=== PATIENT | male | born 1945 | race Caucasian/White ===

== ENCOUNTER → 2024-10-28 10:15 | Outpatient (REF) | payer MEDICARE, BC, SELFPAY | LOC: RAD 10:15 | PROVIDERS: ATTENDING PHYSICIAN Nurse Practitioner Family; FAMILY PHYSICIAN Family Medicine | DX: M79.661 Pain in right lower leg (principal); M79.671 Pain in right foot | CPT/HCPCS: 73630; 93971 ==

== ENCOUNTER → 2024-10-29 07:17 | Outpatient (REF) | payer MEDICARE, BC, SELFPAY ==
[2024-10-29 08:15] LABS: ALT (SGPT) 19 U/L (0-50); AST (SGOT) 20 U/L (17-59); Albumin 4.4 g/dl (3.5-5.0); Alkaline Phosphatase 81 U/L (38-126); Blood Urea Nitrogen 22 mg/dl (9-20); Calcium 9.6 mg/dl (8.4-10.2); Carbon Dioxide 27 mmol/L (22-30); Chloride 107 mmol/L (98-107); Glucose 141 mg/dl (70-99); Magnesium 1.8 mg/dl (1.6-2.3); Potassium 4.3 mmol/L (3.5-5.1); Sodium 141 mmol/L (135-145); Total Protein 7.2 g/dl (6.3-8.2); eGFR > 60.00
[2024-10-29 09:06] LABS: Vitamin B12 578 pg/ml (239-931)
[2024-10-31 12:57] LABS: Lyme Antibody Screen, EIA Negative (Negative)
== END ==
LOC: REG 07:17
PROVIDERS: ATTENDING PHYSICIAN Nurse Practitioner Family; FAMILY PHYSICIAN Family Medicine
DX: M79.671 Pain in right foot (principal); M79.661 Pain in right lower leg; D51.9 Vitamin B12 deficiency anemia, unspecified
CPT/HCPCS: 36415; 80053; 82607; 83735; 86618